=== PATIENT | male | born 1975 | race African-American/Black ===

== ENCOUNTER 2019-03-21 13:19 | Emergency (ER) | payer MEDICARE ==
--- NOTE | 2019-03-25 08:11 | RAD ---
Right foot 3 views INDICATION: Right foot pain COMPARISON: None FINDINGS: No acute fracture or subluxation is evident. The Lisfranc alignment appears within normal l imits. Soft tissues are normal appearing. There is a mild bunion. There is mild great toe MTP osteoarthrosis. There is a prominent enthesophy te off the posterior calcaneus. IMPRESSION: No acute osseous abnormality. Mild great toe MTP osteoarthrosis with mild bunion.
== END 2019-03-21 15:27 | disposition home or self-care (01) ==
LOC: ERS 13:19
DX: M79.671 Pain in right foot (principal); K59.00 Constipation, unspecified

== ENCOUNTER 2021-10-04 15:46 | Emergency (ER) | payer SELFPAY ==
[2021-10-04] MEDS ORDERED: Acetaminophen 325 MG TAB ONE (18:01)
== END 2021-10-04 18:26 | disposition home or self-care (01) ==
LOC: ERS 15:46
DX: M25.562 Pain in left knee (principal); M25.572 Pain in left ankle and joints of left foot

== ENCOUNTER 2023-05-30 10:06 | Emergency (ER) | payer MEDICARE ==
[2023-05-30] MEDS ORDERED: Ketorolac Tromethamine 30 MG/ML VIAL ONE (12:44)
== END 2023-05-30 13:01 | disposition home or self-care (01) ==
LOC: EEVIPCON 10:06 → ERS 10:06
DX: S09.90XA Unspecified injury of head, initial encounter (principal); S00.83XA Contusion of other part of head, initial encounter; G40.409 Other generalized epilepsy and epileptic syndromes, not intractable, without status epilepticus; Y08.02XA Assault by strike by baseball bat, initial encounter
CPT/HCPCS: 70450; 70486; 71045; 93005; 96372; J1885

== ENCOUNTER 2023-06-22 11:09 | Emergency (ER) | payer MEDICARE ==
[2023-06-22] MEDS ORDERED: Ibuprofen 200 MG TAB ONE (11:41)
[2023-06-22] MEDS ORDERED: Bacitracin 1 PK ONE (12:53)
== END 2023-06-22 15:51 | disposition short-term general hospital (02) ==
LOC: ERS 11:09
DX: T22.251A Burn of second degree of right shoulder, initial encounter (principal); Y27.2XXA Contact with hot fluids, undetermined intent, initial encounter
CPT/HCPCS: 99284

== ENCOUNTER 2023-08-13 11:11 | Emergency (ER) | payer SELFPAY | END 2023-08-13 11:35 | disposition home or self-care (01) | LOC: ERS 11:11 | DX: Z00.00 Encounter for general adult medical examination without abnormal findings (principal) | CPT/HCPCS: 99283 ==

== ENCOUNTER 2024-08-19 10:11 | Emergency (ER) | payer SELFPAY | END 2024-08-19 11:56 | disposition home or self-care (01) | LOC: ERS 10:11 | DX: H10.9 Unspecified conjunctivitis (principal) | CPT/HCPCS: 99282 ==

== ENCOUNTER 2025-09-18 11:43 | Emergency (ER) | payer SELFPAY ==
[2025-09-18 13:10] LABS: #Basophils 0.04 10x3/uL (0.0-0.2); #Eosinophils 0.05 10x3/uL (0.0-0.7); #Monocytes 0.57 10x3/uL (0.11-0.59); #Neutrophils 3.97 10x3/uL (1.40-6.50); %Basophils 0.7 % (0.0-1.0); %Eosinophils 0.8 % (0.0-10.0); %Lymphocytes 23.9 % (21.0-51.0); %Monocytes 9.3 % (0.0-10.0); %Neutrophils 65.1 % (42.0-75.0); Hematocrit 40.5 % (42.0-52.0); Hemoglobin 13.3 g/dL (14.0-18.0); Mean Corpuscular Hemoglobin 30.2 pg (27.0-31.0); Mean Corpuscular Volume 91.8 fL (78.0-98.0); Platelet Count 239 10x3/uL (130-400); Red Blood Cell (RBC) Count 4.41 mill/uL (4.70-6.10); White Blood Cell (WBC) Count 6.10 10x3/uL (4.8-10.8)
[2025-09-18 13:27] LABS: ALT (SGPT) 12 U/L (Less than 45); AST (SGOT) 18 U/L (11-34); Albumin 3.6 g/dL (3.1-4.5); Alkaline Phosphatase 56 U/L (40-110); Anion Gap 14 mmol/L (10-20); BUN (Urea Nitrogen) 13 mg/dL (8.9-20.6); Bilirubin, Total 0.5 mg/dL (0.3-1.2); Calc. Creatinine Clearance 0 mL/min (70-130); Calcium 8.6 mg/dL (7.8-10.44); Carbon Dioxide 25 mmol/L (22-29); Chloride 106 mmol/L (98-107); Globulin 2.9 g/dL (2.4-3.5); Glucose 89 mg/dL (70-105); Potassium 3.3 mmol/L (3.5-5.1); Sodium 142 mmol/L (136-145)
[2025-09-18] MEDS ORDERED: Iopamidol-370 76% 500 ML MDV (1 ML CHARGE) ONE (14:05)
== END 2025-09-18 14:11 | disposition home or self-care (01) ==
LOC: ERS 11:43
DX: M61.59 Other ossification of muscle, multiple sites (principal); Z55.6 Problems related to health literacy
CPT/HCPCS: 71045; 71260; 74177; 80053; 84484; 85025; 93005; 96374; J3010; Q9967